=== PATIENT | male | born 1950 | race Hispanic/Latino ===

== ENCOUNTER 2020-12-01 01:54 | Inpatient (IN) | payer BC, OTHER ==
[2020-12-01] MEDS ORDERED: NA CHLORIDE 0.9% 1,000 ML ONE (07:02)
[2020-12-01] MEDS ORDERED: MORPHINE 4 MG/ML SYR ONE ×2 (07:04→12:01)
[2020-12-01] MEDS ORDERED: ONDANSETRON 4 MG/2 ML VIAL ONE (07:04)
[2020-12-01 07:34] LABS: Absolute Lymphocytes (CBC) 1.6 K/uL (0.7-4.9); Basophils % 0.5 % (0-1.3); Hematocrit 44.4 % (39.6-49.0); Lymphocytes % 26.1 % (15.3-44.8); MPV 9.1 fL (7.6-11.3); RBC Red Blood Cell Count 4.78 M/uL (4.33-5.43)
[2020-12-01 07:56] LABS: ALT/SGPT 20 U/L (12-78); AST/SGOT 7 U/L (15-37); Albumin 3.9 g/dL (3.4-5.0); Alkaline Phosphatase 62 U/L (45-117); BUN Blood Urea Nitrogen 12 mg/dL (7-18); Bicarbonate 26 mmol/L (21-32); Bilirubin Direct < 0.1 mg/dL (0-0.2); Bilirubin Total 0.4 mg/dL (0.2-1.0); Glucose Level 158 mg/dL (74-106); Potassium 3.9 mmol/L (3.5-5.1); Protein, Total 8.6 g/dL (6.4-8.2); Sodium Level 142 mmol/L (136-145)
--- NOTE | 2020-12-01 08:31 | ER ---
Nurse's Notes [facility] Name: Jack Cano Age: 70 yrs Sex: Male : 1950 Arrival Date: 12/01/2020 Time: 02:17 Bed 14 Private MD: Diagnosis: Cellulitis and acute lymphangitis of other parts of limb-right foot, cellulitis;Type 2 diabetes mellitus Presentation: 12/01 02:42 Chief complaint: Patient states: pt reports having pain to the foot at this time. sg Coronavirus screen: Client denies travel out of the [place] in the last 14 days. At this time, the client does not indicate any symptoms associated with coronavirus-19. Ebola Screen: Patient negative for fever greater than or equal to 101.5 degrees Fahrenheit, and additional compatible Ebola Virus Disease symptoms Patient denies exposure to infectious person. Patient denies travel to an Ebola-affected area in the 21 days before illness onset. No symptoms or risks identified at this time. Initial Sepsis Screen: Does the patient meet any 2 criteria? No. Patient's initial sepsis screen is negative. Does the patient have a suspected source of infection? No. Patient's initial sepsis screen is negative. Risk Assessment: Do you want to hurt yourself or someone else? Patient reports no desire to harm self or others. Onset of symptoms was December 01, 2020. Care prior to arrival: None. Transition of care: patient was not received from another setting of care. 02:42 Acuity: SARINA 4 sg 02:42 Method Of Arrival: Ambulatory sg 08:25 Acuity: SARINA 3 sg Triage Assessment: 13:30 Injury Description: pt reported dropping dry wall. jd3 Historical: - Allergies: 02:43 No Known Allergies; sg - Immunization history:: Adult Immunizations up to date. - Social history:: Smoking status: Patient denies any tobacco usage or history of. Screenin:09 Abuse screen: Denies threats or abuse. Nutritional screening: No deficits noted. ll2 Tuberculosis screening: No symptoms or risk factors identified. Fall Risk None identified. Assessment: 03:07 General: Appears in no apparent distress. Behavior is calm, cooperative, appropriate ll2 for age. Pain: Complains of pain in right foot Pain currently is 9 out of 10 on a pain scale. Neuro: Level of Consciousness is awake, alert, obeys commands, Oriented to person, place, time, situation. Cardiovascular: Patient's skin is warm and dry. Respiratory: Airway is patent Respiratory effort is even, unlabored, Respiratory pattern is regular, symmetrical. GI: No signs and/or symptoms were reported involving the gastrointestinal system. : No signs and/or symptoms were reported regarding the genitourinary system. EENT: No signs and/or symptoms were reported regarding the EENT system. Derm: Skin is intact, Skin is dry, Skin temperature is warm red swollen top of rt foot. Musculoskeletal: Circulation, motion, and sensation intact. Range of motion: limited in right ankle. 08:02 General: Appears in no apparent distress. Behavior is calm, cooperative, appropriate jd3 for age. Pain: Complains of pain in right foot. Cardiovascular: Capillary refill < 3 seconds Patient's skin is warm and dry. Respiratory: Airway is patent Respiratory effort is even, unlabored, Respiratory pattern is regular, symmetrical. Derm: Skin is intact, Skin is dry, Skin is normal, Skin temperature is warm Wound noted Other: red, swollen, warm to the touch top of right foot. pt reports recent injury. Musculoskeletal: Circulation, motion, and sensation intact. Range of motion: limited in right ankle. 10:48 Reassessment: Patient appears in no apparent distress at this time. No changes from jd3 previously documented assessment. Patient and/or family updated on plan of care and expected duration. Pain level reassessed. Patient is alert, oriented x 3, equal unlabored respirations, skin warm/dry/pink. 13:10 Reassessment: Patient appears in no apparent distress at this time. Patient and/or jd3 family updated on plan of care and expected duration. Pain level reassessed. Patient is alert, oriented x 3, equal unlabored respirations, skin warm/dry/pink. awaiting admission. 13:37 Reassessment: Patient appears in no apparent distress at this time. Patient and/or jd3 family updated on plan of care and expected duration. Pain level reassessed. Patient is alert, oriented x 3, equal unlabored respirations, skin warm/dry/pink. Vital Signs: 03:00 BP 142 / 81; Pulse 84; Resp 20; Pulse Ox 97% on R/A; ll2 04:00 BP 162 / 86; Pulse 90; Resp 22; Pulse Ox 99% on R/A; ll2 04:31 Weight 74.84 kg; Height 5 ft. 3 in. (160.02 cm); ll2 07:30 BP 129 / 57; Pulse 92; Resp 19 S; Pulse Ox 97% on R/A; jd3 10:48 BP 134 / 71; Pulse 86; Resp 17 S; Pulse Ox 98% on R/A; jd3 13:10 BP 135 / 87; Pulse 85; Resp 17 S; Pulse Ox 97% on R/A; jd3 04:31 Body Mass Index 29.23 (74.84 kg, 160.02 cm) ll2 ED Course: 02:17 Patient arrived in ED. am4 02:43 Triage completed. sg 02:43 Arm band placed on. sg 02:49 Blayne Abrams MD is Attending Physician. 7 03:07 Kimberly Sorenson, RN is Primary Nurse. ll2 03:09 Patient has correct armband on for positive identification. Bed in low position. Call ll2 light in reach. Side rails up X 1. Pulse ox on. NIBP on. 03:09 No provider procedures requiring assistance completed. ll2 07:21 Foot Right 3 View XRAY In Process Unspecified. EDMS 07:47 Attending Physician role handed off by Blayne Abrams MD mj 07:47 Cem Donis MD is Attending Physician. mj 08:29 Garland Dumont DO is Hospitalizing Provider. mj 10:53 Primary Nurse role handed off by Kimberly Sorenson, DAQUAN jd3 10:53 Vin Cheema RN is Primary Nurse. jd3 13:36 Patient admitted, IV remains in place. jd3 Administered Medications: 07:06 Drug: NS 0.9% 1000 ml Route: IV; Rate: 1000 ml; Site: right antecubital; ll2 08:00 Follow up: Response: No adverse reaction; IV Status: Completed infusion jd3 07:07 Drug: morphine 4 mg Route: IVP; Site: right antecubital; ll2 14:04 Follow up: Response: No adverse reaction; RASS: Alert and Calm (0) jd3 07:07 Drug: Zofran (Ondansetron) 4 mg Route: IVP; Site: right antecubital; ll2 08:00 Follow up: Response: No adverse reaction jd3 10:05 Drug: Zosyn 3.375 grams Route: IVPB; Infused Over: 60 mins; Site: right antecubital; jd3 11:00 Follow up: Response: No adverse reaction; IV Status: Completed infusion jd3 10:05 Drug: Bactroban Ointment 2 % 1 application Route: Topical; Site: wound; jd3 11:00 Follow up: Response: No adverse reaction jd3 10:06 Drug: Tetanus-Diphtheria Toxoid Adult 0.5 ml {Substance Abuse Rn: [employer]. Exp: jd3 03/02/2022. Lot #: [id number]. } Route: IM; Site: right deltoid; 11:00 Follow up: Response: No adverse reaction jd3 11:27 Drug: vancoMYCIN 1 grams Route: IVPB; Infused Over: 2 hrs; Site: right antecubital; jd3 13:25 Follow up: Response: No adverse reaction; IV Status: Completed infusion jd3 11:48 Drug: morphine 4 mg Route: IVP; Site: right antecubital; jd3 12:40 Follow up: Response: No adverse reaction; RASS: Alert and Calm (0) jd3 Outcome: 08:30 Decision to Hospitalize by Provider. mj 13:36 Admitted to Med/surg accompanied by tech, via wheelchair, room 225, with chart, Report jd3 called to David BUTT 13:36 Condition: stable 13:36 Instructed on the need for admit, Demonstrated understanding of instructions. 13:38 Patient left the ED. jd3 Signatures: Dispatcher [employer] EDMS Angel Ramirez RN RN sg Anderson, Corey, MD MD cha Davies, Jonathon, RN RN jd3 Linscombe, Lacie, RN RN 2 Blayne Abrams MD MD 7 Radha Ramos am4 Corrections: (The following items were deleted from the chart) 04:39 04:30 BP 142 / 81; Pulse 84bpm; Resp 20bpm; Pulse Ox 97% RA; ll2 ll2 07:06 06:40 morphine 4 mg IVP in left antecubital ll2 ll2 10:48 10:48 Reassessment: Patient appears in no apparent distress at this time. Patient jd3 and/or family updated on plan of care and expected duration. Pain level reassessed. Patient is alert, oriented x 3, equal unlabored respirations, skin warm/dry/pink. jd3 14:04 08:00 Response: No adverse reaction liv jd3
--- NOTE | 2020-12-01 08:31 | EDPHYS ---
Physician Documentation [facility] Name: Jack Cano Age: 70 yrs Sex: Male : 1950 Arrival Date: 12/01/2020 Time: 02:17 Bed 14 Private MD: AMADO Physician Cem Donis HPI: 12/01 05:34 This 70 yrs old Male presents to ER via Ambulatory with complaints of Foot mh7 Injury. 05:34 The patient presents with an injury. The complaints affect the right foot. Context: The mh7 problem was sustained at home, resulted from a heavy object falling, Dry Wall, Mechanism of Injury: Dry wall accidentally dropped onto right foot the patient can fully bear weight, the patient is able to ambulate, with mild difficulty. 05:36 Onset: The symptoms/episode began/occurred 3 day(s) ago. Modifying factors: The mh7 symptoms are alleviated by nothing, the symptoms are aggravated by weight bearing. Associated signs and symptoms: Pertinent positives: swelling, Pertinent negatives: calf tenderness, fever, nausea, numbness, rash, tingling, vomiting, warmth, weakness. Severity of symptoms: At their worst the symptoms were moderate, 2 day(s) ago, in the emergency department the symptoms are unchanged. Historical: - Allergies: 02:43 No Known Allergies; sg - Immunization history:: Adult Immunizations up to date. - Social history:: Smoking status: Patient denies any tobacco usage or history of. ROS: 05:36 Constitutional: Negative for fever, chills, and weight loss, Eyes: Negative for injury, mh7 pain, redness, and discharge, ENT: Negative for injury, pain, and discharge, Neck: Negative for injury, pain, and swelling, Cardiovascular: Negative for chest pain, palpitations, and edema, Respiratory: Negative for shortness of breath, cough, wheezing, and pleuritic chest pain, Abdomen/GI: Negative for abdominal pain, nausea, vomiting, diarrhea, and constipation, Back: Negative for injury and pain, : Negative for injury, bleeding, discharge, and swelling, Neuro: Negative for headache, weakness, numbness, tingling, and seizure, Psych: Negative for depression, anxiety, suicide ideation, homicidal ideation, and hallucinations, Allergy/Immunology: Negative for hives, rash, and allergies, Endocrine: Negative for neck swelling, polydipsia, polyuria, polyphagia, and marked weight changes, Hematologic/Lymphatic: Negative for swollen nodes, abnormal bleeding, and unusual bruising. Exam: 05:36 Constitutional: This is a well developed, well nourished patient who is awake, alert, mh7 and in no acute distress. Head/Face: Normocephalic, atraumatic. Eyes: Pupils equal round and reactive to light, extra-ocular motions intact. Lids and lashes normal. Conjunctiva and sclera are non-icteric and not injected. Cornea within normal limits. Periorbital areas with no swelling, redness, or edema. Neck: Trachea midline, no thyromegaly or masses palpated, and no cervical lymphadenopathy. Supple, full range of motion without nuchal rigidity, or vertebral point tenderness. No Meningismus. Chest/axilla: Normal chest wall appearance and motion. Nontender with no deformity. No lesions are appreciated. Cardiovascular: Regular rate and rhythm with a normal S1 and S2. No gallops, murmurs, or rubs. Normal PMI, no JVD. No pulse deficits. Respiratory: Lungs have equal breath sounds bilaterally, clear to auscultation and percussion. No rales, rhonchi or wheezes noted. No increased work of breathing, no retractions or nasal flaring. Abdomen/GI: Soft, non-tender, with normal bowel sounds. No distension or tympany. No guarding or rebound. No evidence of tenderness throughout. Back: No spinal tenderness. No costovertebral tenderness. Full range of motion. 05:36 Neuro: Awake and alert, GCS 15, oriented to person, place, time, and situation. Cranial nerves II-XII grossly intact. Motor strength 5/5 in all extremities. Sensory grossly intact. Cerebellar exam normal. Normal gait. Psych: Awake, alert, with orientation to person, place and time. Behavior, mood, and affect are within normal limits. 05:36 Musculoskeletal/extremity: Extremities: noted in the right foot: erythema, pain, swelling, tenderness, ROM: limited active range of motion due to pain, in the right foot, limited passive range of motion due to pain, in the right foot, Circulation is intact in all extremities. Pulses: are normal with no appreciated deficits, Perfusion: the patient is normally perfused throughout, Perfusion: the extremity is normally perfused throughout, Calf tenderness, is absent, Sensation intact. Compartment Syndrome exam of affected extremity: is normal. no numbness, no tingling, no sensation deficit, no palor, no weak pulses, Joints: All joints appear normal with full range of motion. 05:36 Skin: injury, contusion(s), that are deep, of the right foot. Vital Signs: 03:00 BP 142 / 81; Pulse 84; Resp 20; Pulse Ox 97% on R/A; ll2 04:00 BP 162 / 86; Pulse 90; Resp 22; Pulse Ox 99% on R/A; ll2 04:31 Weight 74.84 kg; Height 5 ft. 3 in. (160.02 cm); ll2 07:30 BP 129 / 57; Pulse 92; Resp 19 S; Pulse Ox 97% on R/A; jd3 10:48 BP 134 / 71; Pulse 86; Resp 17 S; Pulse Ox 98% on R/A; jd3 13:10 BP 135 / 87; Pulse 85; Resp 17 S; Pulse Ox 97% on R/A; jd3 04:31 Body Mass Index 29.23 (74.84 kg, 160.02 cm) ll2 MDM: 07:13 Transition of care: After a detail discussion of the patient's case, care is mh7 transferred to Cem Donis MD. 07:47 Patient medically screened. mj 08:28 Differential diagnosis: fracture, sprain, penetrating trauma, cellulitis. Data mj reviewed: vital signs, nurses notes, lab test result(s), radiologic studies. Data interpreted: svp operations: rate is 92 beats/min, rhythm is regular, Pulse oximetry: is not applicable for this patient encounter. Test interpretation: by ED physician or midlevel provider: plain radiologic studies. Counseling: I had a detailed discussion with the patient and/or guardian regarding: the historical points, exam findings, and any diagnostic results supporting the discharge/admit diagnosis, lab results, radiology results, the need for further work-up and treatment in the hospital. 12/01 04:21 Order name: Glucose, Ancillary Testing; Complete Time: 05:42 EDMS 12/01 05:42 Order name: CBC with Diff; Complete Time: 08:25 7 12/01 05:42 Order name: Basic Metabolic Panel; Complete Time: 08:25 7 12/01 05:42 Order name: LFT's; Complete Time: 08:25 7 12/01 10:56 Order name: COVID-19 : Document "Date of Symptom Onset" if Symptomatic. eb 12/01 12:09 Order name: CORONAVIRUS EDVA 12/01 03:40 Order name: Foot Right 3 View XRAY; Complete Time: 20:13 7 12/01 12:56 Order name: SARS-COV-2 RT PCR; Complete Time: 20:13 [facility] 12/01 03:41 Order name: Accucheck Blood Glucose; Complete Time: 04:00 mh7 Administered Medications: 07:06 Drug: NS 0.9% 1000 ml Route: IV; Rate: 1000 ml; Site: right antecubital; ll2 08:00 Follow up: Response: No adverse reaction; IV Status: Completed infusion jd3 07:07 Drug: morphine 4 mg Route: IVP; Site: right antecubital; ll2 14:04 Follow up: Response: No adverse reaction; RASS: Alert and Calm (0) jd3 07:07 Drug: Zofran (Ondansetron) 4 mg Route: IVP; Site: right antecubital; ll2 08:00 Follow up: Response: No adverse reaction jd3 10:05 Drug: Zosyn 3.375 grams Route: IVPB; Infused Over: 60 mins; Site: right antecubital; jd3 11:00 Follow up: Response: No adverse reaction; IV Status: Completed infusion jd3 10:05 Drug: Bactroban Ointment 2 % 1 application Route: Topical; Site: wound; jd3 11:00 Follow up: Response: No adverse reaction jd3 10:06 Drug: Tetanus-Diphtheria Toxoid Adult 0.5 ml {Sales Advisor: [employer]. Exp: jd3 03/02/2022. Lot #: [id number]. } Route: IM; Site: right deltoid; 11:00 Follow up: Response: No adverse reaction jd3 11:27 Drug: vancoMYCIN 1 grams Route: IVPB; Infused Over: 2 hrs; Site: right antecubital; jd3 13:25 Follow up: Response: No adverse reaction; IV Status: Completed infusion jd3 11:48 Drug: morphine 4 mg Route: IVP; Site: right antecubital; jd3 12:40 Follow up: Response: No adverse reaction; RASS: Alert and Calm (0) jd3 Disposition: 12/01/20 08:30 Hospitalization ordered by Garland Dumont for Inpatient Admission. Preliminary diagnosis are Cellulitis and acute lymphangitis of other parts of limb - right foot, cellulitis, Type 2 diabetes mellitus. - Bed requested for Telemetry/MedSurg (Inpatient). - Status is Inpatient Admission. jd3 - Condition is Stable. - Problem is new. - Symptoms have improved. Signatures: Dispatcher [employer] EDMS Angel Ramirez, RN RN Cem Villasenor MD MD cha Davies, Jonathon, RN RN jd3 Kandace Melendez Lacie, RN RN 2 Blayne Abrams MD MD mh7 Corrections: (The following items were deleted from the chart) 13:00 08:30 Hospitalization Ordered by Garland Dumont DO for Inpatient Admission. Preliminary eb diagnosis is Cellulitis and acute lymphangitis of other parts of limb - right foot, cellulitis; Type 2 diabetes mellitus. Bed requested for Telemetry/MedSurg (Inpatient). Status is Inpatient Admission. Condition is Stable. Problem is new. Symptoms have improved. [facility] 13:38 13:00 12/01/2020 08:30 Hospitalization Ordered by Garland Dumont DO for Inpatient jd3 Admission. Preliminary diagnosis is Cellulitis and acute lymphangitis of other parts of limb - right foot, cellulitis; Type 2 diabetes mellitus. Bed requested for Telemetry/MedSurg (Inpatient). Status is Inpatient Admission. Condition is Stable. Problem is new. Symptoms have improved. eb
--- NOTE | 2020-12-01 09:19 | P.HP ---
Certification for Inpatient Patient admitted to: Observation With expected LOS: <2 Midnights Patient will require the following post-hospital care: None Practitioner: I am a practitioner with admitting privileges, knowledge of patient current condition, hospital course, and medical plan of care. Services: Services provided to patient in accordance with Admission requirements found in Title 42 Section 412.3 of the Code of Federal Regulations Patient History Date of Service: 12/01/20 Primary Care Provider: Dr. Aguila; Neurology-Dr. Orozco Reason for admission: Right foot cellulitis History of Present Illness: 70-year-old male with history of diabetes mellitus type 2, hypertension, myasthenia gravis, and hyperlipidemia. Patient presented to the emergency room after he was working on a project. He was applying sheet rock wall and it fell on his right foot. This occurred about 3 days ago. Since that time increase erythema, swelling, and pain noted. This is not improved. Patient denies any fever, chills, chest pain or shortness of breath. Due to the increasing erythema and swelling the patient came to the ER for further evaluation. In the ER patient was evaluated. X-ray shows no evidence of gross fracture. White count 6.3, hemoglobin 14.9. Sodium 142, potassium 3.9. Being of his 12, creatinine 0.8 with a GFR greater than 90. Glucose 158. Patient was admitted for further evaluation and treatment. When I saw the patient ER, patient does not appear septic. Significant erythema, pain and swelling noted to the right foot. Home medications list reviewed: Yes - Past Medical/Surgical History Diabetic: Yes -: Diabetes mellitus type 2 -: Hypertension -: Hyperlipidemia -: Myasthenia gravis Past Surgical History: Patient denies surgical history Psychosocial/ Personal History: Patient is . Reports difficulty with his son who has mental health issues. - Family History Family History: Reviewed- Non-Contributory - Social History Smoking Status: Never smoker Alcohol use: No CD- Drugs: No Caffeine use: Yes Place of Residence: Home Review of Systems General: As per HPI Eyes: Unremarkable ENT: Unremarkable Respiratory: Unremarkable Cardiovascular: Unremarkable Gastrointestinal: Unremarkable Genitourinary: Unremarkable Musculoskeletal: As per HPI Integumentary: As per HPI Neurological: Unremarkable Lymphatics: Unremarkable Physical Examination - Physical Exam General: Alert, In no apparent distress, Oriented x3, Cooperative HEENT: Atraumatic, Normocephalic, PERRLA, Mucous membr. moist/pink Neck: Supple Respiratory: Clear to auscultation bilaterally, Normal air movement Cardiovascular: Normal pulses, Regular rate/rhythm Gastrointestinal: Normal bowel sounds, Soft and benign, Non-distended, No tenderness, No masses, No rebound, No guarding Musculoskeletal: Other (Erythema, swelling noted to the right foot. This extends from the forefoot region near the ankle region. There is an area of small ulcers but no significant exudate noted. Pain noted with palpation. Area marked. Area measures around 3 x 5 inches.) Integumentary: Other (As above) Neurological: Normal speech, Normal strength at 5/5 x4 extr, Normal tone, Normal affect - Studies Laboratory Data (last 24 hrs) 12/01/20 07:24: Sodium 142, Potassium 3.9, BUN 12, Creatinine 0.81, Glucose 158 H, Total Bilirubin 0.4, AST 7 L, ALT 20, Alkaline Phosphatase 62 12/01/20 07:24: WBC 6.30, Hgb 14.7, Hct 44.4, Plt Count 230 Assessment and Plan - Plan Initial chief complaint: Right foot pain, swelling, and erythema secondary to infection Impression: Right foot cellulitis secondary to trauma injury Diabetes mellitus type 2 Hypertension Hyperlipidemia Myasthenia gravis Plan: Right foot cellulitis secondary to trauma injury: Patient will be admitted for further evaluation and treatment. Blood cultures obtained. Area marked. No gross fracture noted on x-ray. Await final results. Will start IV with vancomycin and cefepime. Elevate leg when sitting or lying. Will have nurse clean area with normal saline and apply Bactroban ointment. Will consult surgery for further evaluation. Will keep the patient NPO after midnight for possible evaluation and debridement. Will provide medication for pain. Will provide DVT prophylaxis-Lovenox. Anticipate improvement over the next 48 hr. I will turn the service over to the hospitalist team tomorrow. I will go plan of care with him. Diabetes mellitus type 2: Will check A1c. Sliding scale in place. Continue metformin. Obtain and verify home medication. Hypertension: Obtain and verify home medication. Will start lisinopril. Hyperlipidemia: Obtain and verify home medication. Will start Lipitor. Myasthenia gravis: Will need to obtain and restart home medication. Patient sees Neurology as an outpatient. Discharge Plan: Home Plan to discharge in: 48 Hours - Advance Directives Does patient have a Living Will: No Does patient have a Durable POA for Healthcare: No - Code Status/Comfort Care Code Status Assessed: Yes (Patient is full code) Time Spent Managing Pts Care (In Minutes): 55
[2020-12-01] MEDS ORDERED: VANCOMYCIN/NS 1 gm 1 GM/250 ML BAG IVPB ONE (10:00)
[2020-12-01] MEDS ORDERED: MUPIROCIN 2% OINT 22GM TUBE TOP ONE (10:05)
[2020-12-01] MEDS ORDERED: TETANUS & DIPHTHERIA TOX,ADULT 0.5 ML VIAL ONE (10:06)
[2020-12-01] MEDS ORDERED: PIPER/TAZO/NS 3.375gm 3.375 GM/100 ML BAG ONE (10:06)
--- NOTE | 2020-12-01 12:53 | RAD REPORT ---
EXAM DESCRIPTION: RAD - Foot Right 3 View - 12/01/2020 5:15 am CLINICAL HISTORY: trauma Pain and swelling COMPARISON: FOOT W OBLIQUES dated 07/07/2008 FINDINGS: Mild diffuse osteopenia is seen. No acute fracture or dislocation seen.
[2020-12-01] MEDS ORDERED: TRAMADOL HCL 50 MG TAB PO PRN (14:10)
[2020-12-01] MEDS ORDERED: CEFEPIME 1 GM/VIAL IV SCH (14:10)
[2020-12-01] MEDS ORDERED: ONDANSETRON 4 MG/2 ML VIAL IV PRN (14:10)
[2020-12-01 14:12] VITALS: BMI 28.3
[2020-12-01] MEDS: INSULIN -REGULAR HUMAN 50 UNIT/0.5 ML ML SQ SCH ×3 (14:52→20:13)
[2020-12-01] MEDS: NA CHLORIDE 0.9% 1,000 ML IV SCH (14:57)
[2020-12-01] MEDS: METFORMIN HCL 500 MG TAB PO SCH (16:05)
[2020-12-01] MEDS: CEFEPIME/SWI 1gm 10 ML IVP SCH ×2 (16:05→20:13)
[2020-12-01] MEDS: ENOXAPARIN 40 MG/0.4 ML SQ SCH (16:06)
[2020-12-01] MEDS: VANCOMYCIN 1.25 GM in NA CHLORIDE 0.9% 250 ML IVPB SCH (16:24)
[2020-12-01 17:33] LABS: Urine Appearance CLEAR; Urine Bilirubin NEGATIVE (NEG); Urine Blood NEGATIVE (NEG); Urine Color YELLOW; Urine Glucose 2+ (NEG); Urine Protein NEGATIVE (NEG); Urine Urobilinogen 0.2 mg/dL (0.2-1.0)
[2020-12-01 17:48] LABS: Urine Microscopic Reflex NO UMIC
[2020-12-01] MEDS: HYDROCODONE/APAP 7.5/325 MG TAB PO PRN ×2 (17:49→23:32)
[2020-12-01] MEDS: ATORVASTATIN 10 MG TAB PO SCH (20:13)
[2020-12-01] MEDS: MUPIROCIN 2% OINT 22GM TUBE TOP SCH (20:15)
[2020-12-01] MEDS ORDERED: POTASSIUM CL SA 10 MEQ TAB PO ONE (21:00)
[2020-12-02 04:39] LABS: Basophils % 0.3 % (0-1.3); Hematocrit 41.4 % (39.6-49.0); MPV 8.9 fL (7.6-11.3); RBC Red Blood Cell Count 4.48 M/uL (4.33-5.43)
[2020-12-02 04:49] LABS: BUN Blood Urea Nitrogen 7 mg/dL (7-18); Bicarbonate 27 mmol/L (21-32); Glucose Level 191 mg/dL (74-106); Magnesium 1.6 mg/dL (1.8-2.4); Potassium 4.5 mmol/L (3.5-5.1); Sodium Level 141 mmol/L (136-145)
[2020-12-02] MEDS ORDERED: MAGNESIUM SULFATE 1 gm IVPB 1 GM/100 ML BAG IV ONE (05:08)
[2020-12-02] MEDS: HYDROCODONE/APAP 7.5/325 MG TAB PO PRN ×2 (05:30→22:39)
[2020-12-02] MEDS: INSULIN -REGULAR HUMAN 50 UNIT/0.5 ML ML SQ SCH ×4 (07:30→21:00)
[2020-12-02] MEDS: ENOXAPARIN 40 MG/0.4 ML SQ SCH (09:00)
[2020-12-02] MEDS: lisinopriL 10 MG TAB PO SCH (09:00)
[2020-12-02] MEDS: CEFEPIME/SWI 1gm 10 ML IVP SCH ×2 (09:00→22:30)
[2020-12-02] MEDS ORDERED: VANCOMYCIN 1 GM in NA CHLORIDE 0.9% 500 ML IVPB SCH (09:00)
[2020-12-02] MEDS: VANCOMYCIN 1.25 GM in NA CHLORIDE 0.9% 250 ML IVPB SCH (09:53)
[2020-12-02] MEDS: MUPIROCIN 2% OINT 22GM TUBE TOP SCH ×2 (09:54→21:00)
[2020-12-02] MEDS: NA CHLORIDE 0.9% 1,000 ML IV SCH (09:54)
[2020-12-02] MEDS: ASPIRIN EC 81 MG TAB PO SCH (09:57)
[2020-12-02] MEDS: METFORMIN HCL 500 MG TAB PO SCH ×2 (09:57→17:18)
[2020-12-02] MEDS: FOLIC ACID 1 MG TABLET PO SCH (09:57)
[2020-12-02] MEDS: ACETAMINOPHEN 500 MG TAB PO PRN ×2 (10:03→17:18)
--- NOTE | 2020-12-02 10:49 | CON ---
Date of Consultation: 12/02/2020 Reason For Consult: Right foot cellulitis, necrotic wound, crush injury. History Of Present Illness: This is the case of a 70-year-old patient who was working with [employer] and [employer] fell into his right foot creating a crush injury in the right foot region. Fi rst, he saw the redness and then after that saw the blackness last night, so he decided to come to [facility] ER. He denies any other trauma. He denies any dysuria, hematuria, hematochezia, melena. Denies a ny recent traveling out of the country. He denies any family member sick at home. He was ambulatory . Allergies: NONE. Past Medical History: Hypertension, hyperlipidemia, myasthenia gravis, diabetes. Past Surgical History: None. Social History: He does not smoke. He does not drink alcohol. Review of Systems: Ten points otherwise unremarkable. Physical Examination: General: The patient is awake, alert. HEENT: Pupils are equal and reactive, anicteric. Neck: Supple. Chest: Clear. Abdomen: Soft and depressible. Rectal: Deferred. Extremities: Good capillary refill. Full range of motion, but in the right foot, the patient has a dorsum of the foot with an area of about 7 x 3 cm of open ulcers and necrotic skin consistent with cr ush injury to that area. There is cellulitis associated with not just the area of the injury, also d istal and proximal on the foot. Dorsalis pedis pulses bilaterally are still palpated, although weak femoral pulses still present and popliteal. Diagnostic Studies: Foot x-ray interpreted by Dr. Dong as diffuse osteopenia. No acute fracture or dislocation. Laboratory Data: Blood work shows WBC count of 7.1, hemoglobin of 13 and chloride is 107. Creatinin e is 0.7. Assessment: This is 70-year-old patient with a right foot cellulitis traumatic wound with necrotic t issue in the right foot. The patient understood the intention of debridement with benefits, alternat peter, and risks including, but not limited to infection, bleeding, damage to adjacent structures, ane sthesia complication, nonhealing wound, [place], and even . He also understands this may not relieve symptoms. He might need more than one surgical intervention. He was booked in OR. HM/MODL Voice ID: [id number] Report ID: [id number]
[2020-12-02] MEDS ORDERED: propofoL 200 MG/20 ML VIAL IV ONE (11:38)
[2020-12-02] MEDS ORDERED: MIDAZOLAM HCL 2 MG/2 ML INJ ONE (11:38)
[2020-12-02] MEDS ORDERED: LIDOCAINE 2% MPF 5 ML VIAL ONE (11:38)
[2020-12-02] MEDS ORDERED: INFLUENZA VACCINE (for 3y+) 0.5 ML DOSE IMVAC ONE (12:00)
[2020-12-02] MEDS ORDERED: FENTANYL CITR 100 MCG/2 ML ONE (12:02)
--- NOTE | 2020-12-02 12:10 | P.BOP ---
Preoperative diagnosis: necrotic wound right foot, s/p trauma crush injury Postoperative diagnosis: same Primary procedure: Excisional debridement of necrotic wound right foot, s/p trauma 8x6cm Estimated blood loss: <10cc Specimen: necrotic tissue Findings: necrotic wound right foot Anesthesia: General Complications: None Transferred to: Recovery Room Condition: Good
[2020-12-02] MEDS ORDERED: COLLAGENASE 30 GM OINTMENT TOP ONE (12:12)
[2020-12-02] MEDS ORDERED: KETOROLAC 30 MG/ML INJ ONE (12:14)
--- NOTE | 2020-12-02 13:04 | OP ---
Date of Procedure: 12/02/2020 Surgeon: Nixon Ramos MD Preoperative Diagnosis: Necrotic right wound status post trauma, crush injury. Postoperative Diagnosis: Necrotic right wound status post trauma, crush injury. Procedure: Excisional debridement of necrotic wound right foot status post trauma, 8 x 6 cm. Specimen: Necrotic tissue, the entire dermis and epidermis. Subcutaneous tissue also is necrotic. No bone exposed. Anesthesia: General plus local. Indications: This is the case of a 70-year-old patient, who dropped a sheet rock panel on his foot w hile working at home. Developed erythema and started to develop necrotic skin over the region, came to the ER, admitted for cellulitis and also necrotic wound for debridement. The benefits, alternativ es, and risks of debridement were fully explained to the patient, which include, but not limited to i nfection, bleeding, damage to adjacent structures, anesthesia complication, nonhealing wound, [place], and even . The patient understands this may not relieve any symptoms. He might need more than one surgical intervention. He understood, signed a consent. The area of concern was marked by and willian cooper patient in the holding room. Procedure In Detail: The patient was brought to the operating room, placed in supine position. Anes thesia was done without complication. Right foot was prepped and draped in sterile fashion. A time- out was called. Local anesthetic was applied followed by debridement of the necrotic tissue and the ulceration. This goes all the way down to deep subcutaneous tissue near the tendon, although the bon e is not exposed. All the necrotic tissue was removed. The area was irrigated, hemostasis was obtai jesika, and the area was covered with Santyl and wet to dry. The patient was sent to recovery in stable condition. HM/MODL Voice ID: [id number] Report ID: [id number]
[2020-12-02] MEDS: ATORVASTATIN 10 MG TAB PO SCH (22:29)
[2020-12-02] MEDS ORDERED: CEFEPIME/SWI 1gm 10 ML ONE (22:40)
[2020-12-03] MEDS: VANCOMYCIN 1.25 GM in NA CHLORIDE 0.9% 250 ML IVPB SCH ×2 (03:32→21:23)
[2020-12-03] MEDS: HYDROCODONE/APAP 7.5/325 MG TAB PO PRN ×3 (04:00→19:47)
[2020-12-03] MEDS: NA CHLORIDE 0.9% 1,000 ML IV SCH (06:10)
[2020-12-03 06:34] LABS: Basophils % 0.3 % (0-1.3); Hematocrit 37.6 % (39.6-49.0); MPV 8.6 fL (7.6-11.3); RBC Red Blood Cell Count 4.09 M/uL (4.33-5.43)
[2020-12-03 07:09] LABS: BUN Blood Urea Nitrogen 8 mg/dL (7-18); Bicarbonate 24 mmol/L (21-32); Glucose Level 167 mg/dL (74-106); Magnesium 1.9 mg/dL (1.8-2.4); Potassium 3.7 mmol/L (3.5-5.1); Sodium Level 140 mmol/L (136-145)
[2020-12-03] MEDS: INSULIN -REGULAR HUMAN 50 UNIT/0.5 ML ML SQ SCH ×4 (07:30→21:22)
[2020-12-03] MEDS ORDERED: POTASSIUM 25 MEQ EFFERV TAB PO ONE (08:56)
[2020-12-03] MEDS: MUPIROCIN 2% OINT 22GM TUBE TOP SCH ×2 (09:00→21:00)
[2020-12-03] MEDS: CEFEPIME/SWI 1gm 10 ML IVP SCH ×2 (09:00→21:22)
[2020-12-03] MEDS: FOLIC ACID 1 MG TABLET PO SCH (09:10)
[2020-12-03] MEDS: METFORMIN HCL 500 MG TAB PO SCH ×2 (09:10→17:00)
[2020-12-03] MEDS: lisinopriL 10 MG TAB PO SCH (09:10)
[2020-12-03] MEDS: ASPIRIN EC 81 MG TAB PO SCH (09:10)
[2020-12-03] MEDS: ENOXAPARIN 40 MG/0.4 ML SQ SCH (09:11)
--- NOTE | 2020-12-03 13:27 | PN ---
Date of Progress Note: 12/03/2020 Diagnosis: Necrotic wound right foot, status post trauma. Subjective: The patient doing better. No shortness of breath. No chest pain. No fever. Intact fish rgical site. Plan: I discussed the case with the primary doctor. If he discharged home, then follow up at the [facility] next Wednesday. He can use Santyl wet-to-dry to the area daily, may clean t he area with soap and water. Avoid trauma. ABRAN/FARIHA Voice ID: [id number] Report ID: [id number]
--- NOTE | 2020-12-03 15:48 | P.CNS ---
Date of Consult: 12/03/20 Primary Care Provider: Dr. Aguila; Neurology-Dr. Orozco Chief Complaint: Right foot cellulitis History of Present Illness: The patient is a 70-year-old male with a past medical history significant for diabetes type 2, hypertension, hyperlipidemia, and myasthenia gravis who presented to the emergency department due to right foot erythema, swelling, and significant pain. Patient states that on of last week he had a piece of drywall fall and injured the dorsal aspect of his right foot. Patient states that over time the pain got increasingly worse mass which he her to the ED on Wednesday. X-ray was performed which showed no signs of any fracture. Patient's history of diabetes complicates this injury and [place] wound healing. Infectious Disease has been consulted to monitor the patient's antibiotics. Patient is currently on IV cefepime and vancomycin. Patient's high antibiotics well with no nausea, vomiting, diarrhea, or abdominal pain. Will continue monitor renal function closely. Dr. Ramos has been consulted to evaluate to the patient's wound-debridement has been performed. Dressings per orders: Santyl wet to dry. Patient has nausea vomiting, diarrhea, shortness breath, chest pain. He does have significant pain to his right foot. Ten point ROS has been conducted with pertinent positives and negatives listed above. Allergies No Known Allergies Allergy (Unverified 12/01/20 14:06) Home Medications: Atorvastatin Calcium 1 tab PO BEDTIME 12/01/20 Lisinopril [Zestril] 1 tab PO DAILY 12/01/20 Metformin HCl 1 tab PO BID 12/01/20 Mupirocin Oint [Bactroban 2% Ointment*] 1 renetta TOP BID 12/01/20 azaTHIOprine [Azathioprine] 1 tab PO BID 12/01/20 - Past Medical/Surgical History Diabetic: Yes -: Diabetes mellitus type 2 -: Hypertension -: Hyperlipidemia -: Myasthenia gravis Psychosocial/ Personal History: Patient is . Reports difficulty with his son who has mental health issues. - Family History Father Medical History: Stroke Mother History Unknown: Yes Notes: no medical condition per pt - Social History Alcohol use: No CD- Drugs: No Caffeine use: Yes Place of Residence: Home Review of Systems 10-point ROS is otherwise unremarkable Physical Examination Temp Pulse Resp BP Pulse Ox 97.9 F 125 H 18 112/70 97 12/03/20 12:00 12/03/20 12:00 12/03/20 12:00 12/03/20 12:00 12/03/20 12:00 General: Alert, In no apparent distress HEENT: Atraumatic, Normocephalic, PERRLA, Other Neck: 2+ carotid pulse no bruit, JVD not distended Respiratory: Clear to auscultation bilaterally, Normal air movement Cardiovascular: No edema, Normal pulses, Regular rate/rhythm Capillary refill: <2 Seconds Gastrointestinal: Normal bowel sounds, Soft and benign Musculoskeletal: No clubbing, No swelling Integumentary: Other (Wound 2 the dorsal aspect of right foot: Wound started as a trauma injury and has progressed to do DAISY patient's diabetes. Status post debridement of necrotic tissue. Periwound tissue is erythematous with significant bruising.) Laboratory Last Values WBC 7.10 K/uL (4.3-10.9) 12/02/20 04:08 RBC 4.48 M/uL (4.33-5.43) 12/02/20 04:08 Hgb 13.7 g/dL (13.6-17.9) 12/02/20 04:08 Hct 41.4 % (39.6-49.0) 12/02/20 04:08 MCV 92.4 fL (80-100) 12/02/20 04:08 MCH 30.7 pg (27.0-35.0) 12/02/20 04:08 MCHC 33.2 g/dL (32.0-36.0) 12/02/20 04:08 RDW 13.1 % (12.1-15.2) 12/02/20 04:08 Plt Count 205 K/uL (152-406) 12/02/20 04:08 MPV 8.9 fL (7.6-11.3) 12/02/20 04:08 Neutrophils % 75.7 % (41.7-73.7) H 12/02/20 04:08 Lymphocytes % 14.0 % (15.3-44.8) L 12/02/20 04:08 Monocytes % 9.4 % (3.3-12.3) 12/02/20 04:08 Eosinophils % 0.6 % (0-4.4) 12/02/20 04:08 Basophils % 0.3 % (0-1.3) 12/02/20 04:08 Absolute Neutrophils 5.4 K/uL (1.8-8.0) 12/02/20 04:08 Absolute Lymphocytes 1.0 K/uL (0.7-4.9) 12/02/20 04:08 Absolute Monocytes 0.7 K/uL (0.1-1.3) 12/02/20 04:08 Absolute Eosinophils 0.0 K/uL (0-0.5) 12/02/20 04:08 Absolute Basophils 0.0 K/uL (0-0.5) 12/02/20 04:08 Sodium 141 mmol/L (136-145) 12/02/20 04:08 Potassium 4.5 mmol/L (3.5-5.1) 12/02/20 04:08 Chloride 107 mmol/L (98-107) 12/02/20 04:08 Carbon Dioxide 27 mmol/L (21-32) 12/02/20 04:08 BUN 7 mg/dL (7-18) 12/02/20 04:08 Creatinine 0.73 mg/dL (0.55-1.3) 12/02/20 04:08 Estimated GFR > 90 mL/min (=/>90) 12/02/20 04:08 Glucose 191 mg/dL (74-106) H 12/02/20 04:08 POC Glucose 167 mg/dL (65-120) H 12/02/20 15:45 Hemoglobin A1c 7.2 % (4.2-6.3) H 12/02/20 04:08 Calcium 8.3 mg/dL (8.5-10.1) L 12/02/20 04:08 Magnesium 1.6 mg/dL (1.8-2.4) L 12/02/20 04:08 Total Bilirubin 0.4 mg/dL (0.2-1.0) 12/01/20 07:24 Direct Bilirubin < 0.1 mg/dL (0-0.2) 12/01/20 07:24 AST 7 U/L (15-37) L 12/01/20 07:24 ALT 20 U/L (12-78) 12/01/20 07:24 Alkaline Phosphatase 62 U/L (45-117) 12/01/20 07:24 Serum Total Protein 8.6 g/dL (6.4-8.2) H 12/01/20 07:24 Albumin 3.9 g/dL (3.4-5.0) 12/01/20 07:24 Globulin 4.7 g/dL (2.3-3.5) H 12/01/20 07:24 Albumin/Globulin Ratio 0.8 (1.1-1.8) L 12/01/20 07:24 Urine Color Yellow 12/01/20 16:25 Urine Appearance Clear 12/01/20 16:25 Urine pH 6.0 (5.0-7.0) 12/01/20 16:25 Ur Specific [place] 1.020 (1.005-1.030) 12/01/20 16:25 Glucose (UA)(Auto) 2+ (NEG) H 12/01/20 16:25 Urine Ketones 1+ (NEG) H 12/01/20 16:25 Urine Blood Negative (NEG) 12/01/20 16:25 Urine Nitrite Negative (NEG) 12/01/20 16:25 Urine Bilirubin Negative (NEG) 12/01/20 16:25 Urine Urobilinogen 0.2 mg/dL (0.2-1.0) 12/01/20 16:25 Ur Leukocyte Esterase Negative (NEG) 12/01/20 16:25 Urine Total Protein Negative (NEG) 12/01/20 16:25 SARS-CoV-2 RNA (RT-PCR) Negative (NEGATIVE) 12/01/20 11:24 Conclusions/Impression: Assessmnet: 1. Right foot wound with cellulitis 2. Diabetes type 2 3. Anemia Plan: 1. Continue vancomycin and cefepime. The patient will need course antibiotics for 2 weeks to cover cellulitis, can switch to p.o. options for discharge .Will continue monitor renal function closely. -medical management per primary team -continue to monitor CBC and BMP -continue to monitor for signs of infection Plan of care discussed with Dr. Meyer. Thank you for consultation
[2020-12-03] MEDS: ATORVASTATIN 10 MG TAB PO SCH (21:22)
[2020-12-04] MEDS: NA CHLORIDE 0.9% 1,000 ML IV SCH (02:10)
[2020-12-04 03:43] LABS: BUN Blood Urea Nitrogen 8 mg/dL (7-18); Bicarbonate 27 mmol/L (21-32); Glucose Level 156 mg/dL (74-106); Potassium 3.9 mmol/L (3.5-5.1); Sodium Level 142 mmol/L (136-145)
[2020-12-04] MEDS: FOLIC ACID 1 MG TABLET PO SCH (07:24)
[2020-12-04] MEDS: lisinopriL 10 MG TAB PO SCH (07:24)
[2020-12-04] MEDS: METFORMIN HCL 500 MG TAB PO SCH (07:24)
[2020-12-04] MEDS: HYDROCODONE/APAP 7.5/325 MG TAB PO PRN (07:24)
[2020-12-04] MEDS: ASPIRIN EC 81 MG TAB PO SCH (07:24)
[2020-12-04] MEDS: ENOXAPARIN 40 MG/0.4 ML SQ SCH (07:25)
[2020-12-04] MEDS: CEFEPIME/SWI 1gm 10 ML IVP SCH (07:25)
[2020-12-04] MEDS: INSULIN -REGULAR HUMAN 50 UNIT/0.5 ML ML SQ SCH (07:30)
[2020-12-04] MEDS: MUPIROCIN 2% OINT 22GM TUBE TOP SCH (08:22)
[2020-12-04 08:54] VITALS: TEMP 98.8
[2020-12-04 10:08] VITALS: O2SAT 96
--- NOTE | 2020-12-04 10:16 | P.PN ---
Subjective Date of Service: 12/02/20 Patient was cellulitis of the foot. Improving. Debridement today per surgery. Possible discharge home in the next 24-48hrs Review of Systems 10-point ROS is otherwise unremarkable Physical Examination - Vital Signs Temperature: 98.8 F Blood Pressure: 144/77 Pulse: 93 Respirations: 17 Pulse Ox (%): 95 - Physical Exam General: Alert, In no apparent distress, Oriented x3 HEENT: Atraumatic, PERRLA, EOMI Neck: Supple, JVD not distended Respiratory: Clear to auscultation bilaterally, Normal air movement Cardiovascular: Regular rate/rhythm, Normal S1 S2 Gastrointestinal: Normal bowel sounds, No tenderness Musculoskeletal: Erythema, Tenderness, Warmth Neurological: Sensation intact, Cranial nerves 3-12 intact Lymphatics: No axilla or inguinal lymphadenopathy - Studies Microbiology Data (last 24 hrs): 12/02/20 11:49 Wound - Right Foot Gram Stain - Final 12/02/20 11:49 Wound - Right Foot Gram Stain - Final Medications List Reviewed: Yes Assessment & Plan - Problems (Diagnosis) (1) Cellulitis of right foot Current Visit: Yes Status: Acute (2) Trauma Current Visit: Yes Status: Acute (3) Diabetes mellitus Current Visit: Yes Status: Acute - Plan 1. Continue with IV antibiotic 2. Continue with local wound care 3. Wound care consultation/surgical consultation 4. Gentle IV hydration 5. Monitor CBC 6. Strict blood sugar monitoring 7. Pain control 8. GI and DVT prophylaxis Discharge Plan: Home Plan to discharge in: 24 Hours - Advance Directives Does patient have a Living Will: No Does patient have a Durable POA for Healthcare: No - Code Status/Comfort Care Code Status Assessed: Yes Code Status: Full Code Critical Care: No Time Spent Managing PTS Care (In Minutes): 35
--- NOTE | 2020-12-04 10:17 | P.PN ---
Date of Service: 12/03/20 Subjective Patient doing better with no new complaints. Anticipate discharge in the morning. Review of Systems 10-point ROS is otherwise unremarkable Physical Examination - Vital Signs Reviewed - Physical Exam General: Alert, In no apparent distress, Oriented x3 Respiratory: Clear to auscultation bilaterally, Normal air movement Cardiovascular: Regular rate/rhythm, Normal S1 S2 Gastrointestinal: Normal bowel sounds, No tenderness Musculoskeletal: Erythema, Tenderness, Warmth Neurological: Sensation intact, Cranial nerves 3-12 intact Assessment & Plan - Problems (Diagnosis) (1) Cellulitis of right foot Current Visit: Yes Status: Acute (2) Trauma Current Visit: Yes Status: Acute (3) Diabetes mellitus Current Visit: Yes Status: Acute - Plan Plan of care as mentioned below 1. Continue with IV antibiotic 2. Continue with local wound care 3. Surgical consultation appreciated 4. Gentle IV hydration 5. Monitor CBC 6. Strict blood sugar monitoring 7. Pain control 8. GI and DVT prophylaxis
--- NOTE | 2020-12-04 11:08 | P.PN ---
Subjective Date of Service: 12/04/20 Primary Care Provider: Dr. Aguila; Neurology-Dr. Orozco Chief Complaint: Right foot cellulitis Patient christos nd examined at bedside. No acut complaints at this time, pain in right foot is improving. Vitals today-patient is tacy and hypertensive, afebrile. Review of Systems 10-point ROS is otherwise unremarkable Physical Examination - Vital Signs Temperature: 98.8 F Blood Pressure: 144/77 Pulse: 93 Respirations: 17 Pulse Ox (%): 95 - Physical Exam Other Physical/Emotional Findings: General: Alert, In no apparent distress. HEENT: Atraumatic, Normocephalic, PERRLA, Other. Neck: 2+ carotid pulse no bruit, JVD not distended. Respiratory: Clear to auscultation bilaterally, Normal air movement. Cardiovascular: No edema, Normal pulses, Regular rate/rhythm. Capillary refill: <2 Seconds. Gastrointestinal: Normal bowel soun ds, Soft and benign. Musculoskeletal: No clubbing, No swelling. Integumentary: Other (Wound 2 the dorsal aspect of right foot: Wound started as a trauma injury and has progressed to do the patient's diabetes. Status post debridement of necrotic tissue. Periwound tissue is erythematous with significant bruising.) - Studies Laboratory Last Values WBC 7.10 K/uL (4.3-10.9) 12/02/20 04:08 RBC 4.48 M/uL (4.33-5.43) 12/02/20 04:08 Hgb 13.7 g/dL (13.6-17.9) 12/02/20 04:08 Hct 41.4 % (39.6-49.0) 12/02/20 04:08 MCV 92.4 fL (80-100) 12/02/20 04:08 MCH 30.7 pg (27.0-35.0) 12/02/20 04:08 MCHC 33.2 g/dL (32.0-36.0) 12/02/20 04:08 RDW 13.1 % (12.1-15.2) 12/02/20 04:08 Plt Count 205 K/uL (152-406) 12/02/20 04:08 MPV 8.9 fL (7.6-11.3) 12/02/20 04:08 Neutrophils % 75.7 % (41.7-73.7) H 12/02/20 04:08 Lymphocytes % 14.0 % (15.3-44.8) L 12/02/20 04:08 Monocytes % 9.4 % (3.3-12.3) 12/02/20 04:08 Eosinophils % 0.6 % (0-4.4) 12/02/20 04:08 Basophils % 0.3 % (0-1.3) 12/02/20 04:08 Absolute Neutrophils 5.4 K/uL (1.8-8.0) 12/02/20 04:08 Absolute Lymphocytes 1.0 K/uL (0.7-4.9) 12/02/20 04:08 Absolute Monocytes 0.7 K/uL (0.1-1.3) 12/02/20 04:08 Absolute Eosinophils 0.0 K/uL (0-0.5) 12/02/20 04:08 Absolute Basophils 0.0 K/uL (0-0.5) 12/02/20 04:08 Sodium 141 mmol/L (136-145) 12/02/20 04:08 Potassium 4.5 mmol/L (3.5-5.1) 12/02/20 04:08 Chloride 107 mmol/L (98-107) 12/02/20 04:08 Carbon Dioxide 27 mmol/L (21-32) 12/02/20 04:08 BUN 7 mg/dL (7-18) 12/02/20 04:08 Creatinine 0.73 mg/dL (0.55-1.3) 12/02/20 04:08 Estimated GFR > 90 mL/min (=/>90) 12/02/20 04:08 Glucose 191 mg/dL (74-106) H 12/02/20 04:08 POC Glucose 167 mg/dL (65-120) H 12/02/20 15:45 Hemoglobin A1c 7.2 % (4.2-6.3) H 12/02/20 04:08 Calcium 8.3 mg/dL (8.5-10.1) L 12/02/20 04:08 Magnesium 1.6 mg/dL (1.8-2.4) L 12/02/20 04:08 Total Bilirubin 0.4 mg/dL (0.2-1.0) 12/01/20 07:24 Direct Bilirubin < 0.1 mg/dL (0-0.2) 12/01/20 07:24 AST 7 U/L (15-37) L 12/01/20 07:24 ALT 20 U/L (12-78) 12/01/20 07:24 Alkaline Phosphatase 62 U/L (45-117) 12/01/20 07:24 Serum Total Protein 8.6 g/dL (6.4-8.2) H 12/01/20 07:24 Albumin 3.9 g/dL (3.4-5.0) 12/01/20 07:24 Globulin 4.7 g/dL (2.3-3.5) H 12/01/20 07:24 Albumin/Globulin Ratio 0.8 (1.1-1.8) L 12/01/20 07:24 Urine Color Yellow 12/01/20 16:25 Urine Appearance Clear 12/01/20 16:25 Urine pH 6.0 (5.0-7.0) 12/01/20 16:25 Ur Specific [place] 1.020 (1.005-1.030) 12/01/20 16:25 Glucose (UA)(Auto) 2+ (NEG) H 12/01/20 16:25 Urine Ketones 1+ (NEG) H 12/01/20 16:25 Urine Blood Negative (NEG) 12/01/20 16:25 Urine Nitrite Negative (NEG) 12/01/20 16:25 Urine Bilirubin Negative (NEG) 12/01/20 16:25 Urine Urobilinogen 0.2 mg/dL (0.2-1.0) 12/01/20 16:25 Ur Leukocyte Esterase Negative (NEG) 12/01/20 16:25 Urine Total Protein Negative (NEG) 12/01/20 16:25 SARS-CoV-2 RNA (RT-PCR) Negative (NEGATIVE) 12/01/20 11:24 Microbiology Data (last 24 hrs): 12/02/20 11:49 Wound - Right Foot Gram Stain - Final 12/02/20 11:49 Wound - Right Foot Gram Stain - Final Medications List Reviewed: Yes Assessment And Plan - Plan Assessment: 1. Right foot wound with cellulites 2. Diabetes type 2 3. Anemia Plan: 1. Continue vancomycin and cefepime. The patient will need course antibiotics for 2 weeks to cover cellulites, can switch to p.o. options for discharge- doxycycline.Will continue monitor renal function closely. -medical management per primary team -continue to monitor CBC and BMP -continue to monitor for signs of infection Plan of care discussed with Dr. Meyer. Thank you for consultation
[2020-12-04 12:42] VITALS: BP 147/75
--- NOTE | 2020-12-24 01:09 | P.DS ---
Discharge Date: 12/04/20 Primary Care Provider: Dr. Aguila; Neurology-Dr. Orozco Disposition: ROUTINE DISCHARGE Discharge Condition: GOOD Reason for Admission: Right foot cellulitis - Problems (1) Cellulitis of right foot Status: Resolved (2) Trauma Status: Acute (3) Diabetes mellitus Status: Chronic Brief History of Present Illness: Patient is a 70-year-old male with history of diabetes mellitus type 2, hypertension, myasthenia gravis, and hyperlipidemia. Patient presented to the emergency room after he was working on a project. He was applying sheet [place] wall and it fell on his right foot. This occurred about 3 days ago. Since that time increase erythema, swelling, and pain noted. This is not improved. Patient denies any fever, chills, chest pain or shortness of breath. Due to the increasing erythema and swelling the patient came to the ER for further evaluation. In the ER patient was evaluated. X-ray shows no evidence of gross fracture. White count 6.3, hemoglobin 14.9. Sodium 142, potassium 3.9. Being of his 12, creatinine 0.8 with a GFR greater than 90. Glucose 158. Patient was admitted for further evaluation and treatment. When I saw the patient ER, patient does not appear septic. Significant erythema, pain and swelling noted to the right foot. Hospital Course: Patient was seen by surgery and infectious disease. Patient had incision and debridement. Patient will be on oral antibiotics for 2 weeks at discharge. At this time patient is stable for discharge and continued outpatient follow up. Return to the emergency room or as needed. Patient is to maintain strict blood sugll. Vital Signs/Physical Exam: Temp Pulse Resp BP Pulse Ox 98.8 F 94 H 16 147/75 H 98 12/04/20 12:00 12/04/20 12:00 12/04/20 12:00 12/04/20 12:00 12/04/20 12:00 General: Alert, In no apparent distress, Oriented x3 Other Physical/Emotional Findings: General: Alert, In no apparent distress. HEENT: Atraumatic, Normocephalic, PERRLA, Other. Neck: 2+ carotid pulse no bruit, JVD not distended. Respiratory: Clear to auscultation bilaterally, Normal air movement. Cardiovascular: No edema, Normal pulses, Regular rate/rhythm. Capillary refill: <2 Seconds. Gastrointestinal: Normal bowel sounds, Soft and benign. Musculoskeletal: No clubbing, No swelling. Integumentary: Other (Wound 2 the dorsal aspect of right foot: Wound started as a trauma injury and has progressed to do the patient's diabetes. Status post debridement of necrotic tissue. Periwound tissue is erythematous with significant bruising.) Laboratory Data at Discharge: WBC 6.90 K/uL (4.3-10.9) 12/03/20 06:00 Hgb 12.5 g/dL (13.6-17.9) L 12/03/20 06:00 Hct 37.6 % (39.6-49.0) L 12/03/20 06:00 Plt Count 198 K/uL (152-406) 12/03/20 06:00 Sodium 142 mmol/L (136-145) 12/04/20 03:10 Potassium 3.9 mmol/L (3.5-5.1) 12/04/20 03:10 BUN 8 mg/dL (7-18) 12/04/20 03:10 Creatinine 0.59 mg/dL (0.55-1.3) 12/04/20 03:10 Glucose 156 mg/dL (74-106) H 12/04/20 03:10 Magnesium 1.9 mg/dL (1.8-2.4) 12/03/20 06:00 Total Bilirubin 0.4 mg/dL (0.2-1.0) 12/01/20 07:24 AST 7 U/L (15-37) L 12/01/20 07:24 ALT 20 U/L (12-78) 12/01/20 07:24 Alkaline Phosphatase 62 U/L (45-117) 12/01/20 07:24 Home Medications: Atorvastatin Calcium 1 tab PO BEDTIME 12/01/20 Lisinopril [Zestril] 1 tab PO DAILY 12/01/20 Metformin HCl 1 tab PO BID 12/01/20 azaTHIOprine [Azathioprine] 1 tab PO BID 12/01/20 Smz./Tmp. [Bactrim Ds 800 MG/160 MG] 1 tab PO BID #20 tab 12/04/20 Pyridostigmine [place] [Mestinon] 60 mg PO TID 12/12/20 New Medications: Smz./Tmp. [Bactrim Ds 800 MG/160 MG] 1 tab PO BID #20 tab Physician Discharge Instructions: -OK TO DC IV AND DC HOME -FOLLOW-UP WITH PCP IN 1-2 WEEKS -FOLLOW-UP WITH Surgery IN 1-2 WEEKS -PLEASE MAKE SURE ALL DIAGNOSTIC STUDIES ARE AVAILABLE AND HAVE BEEN REVIEWED WITH PATIENT PRIOR TO DISCHARGE -RETURN TO THE ER IF Symptoms worsen -CALL DR. MCADAMS AT [phone] IF ANY QUESTIONS REGARDING HOSPITAL STAY -PLEASE CALL THE FLOOR AT [phone] IF ANY MEDICATION OR NURSING QUESTIONS Diet: ADA Activity: Fall precautions Followup: Nixon Ramos MD [ACTIVE - CAN ADMIT] - NONE,NONE [Primary Care Provider] - Time spent managing pt's care (in minutes): 35
== END 2020-12-04 13:09 | disposition home or self-care (01) | DRG 264 ==
LOC: ER 01:54 → ERHOLD 09:05 → 2ND 13:27 → OBSVTOIN 12-02 19:08
PROVIDERS: ADMIT Family Medicine; ATTEND Hospitalist
PROC: 0JBQ0ZZ Excision of Right Foot Subcutaneous Tissue and Fascia, Open Approach (ICD-10-PCS; principal; 2020-12-02 12:30)
DX: E11.52 Type 2 diabetes mellitus with diabetic peripheral angiopathy with gangrene (principal); I96 Gangrene, not elsewhere classified; L03.115 Cellulitis of right lower limb; E11.621 Type 2 diabetes mellitus with foot ulcer; L97.519 Non-pressure chronic ulcer of other part of right foot with unspecified severity; I10 Essential (primary) hypertension; D64.9 Anemia, unspecified; E78.5 Hyperlipidemia, unspecified; G70.00 Myasthenia gravis without (acute) exacerbation; Z79.84 Long term (current) use of oral hypoglycemic drugs; Z79.899 Other long term (current) drug therapy; Z23 Encounter for immunization; Z20.822 Contact with and (suspected) exposure to COVID-19
CPT/HCPCS: 36415; 80048; 80076; 81003; 82947; 83036; 83735; 85025; 87040; 87070; 87075; 87205; 88304; 90471; 90714; 96361; 96365; 96366; 96367; 96375; 97116; 97161; 97530; 99285; G0378; J0692; J1650; J2250; J2405; J2543; J2704; J3010; J3370; J3475; J3590; J7030; J7050; Q2035; U0003

== ENCOUNTER 2023-05-13 07:00 | Day surgery (SDC) | payer OTHER ==
[2023-05-11 13:32] LABS: Absolute Lymphocytes (CBC) 1.5 K/uL (0.7-4.9); Hematocrit 46.1 % (39.6-49.0); Lymphocytes % 24.3 % (15.3-44.8); MCV 91.3 fL (80-100); MPV 8.5 fL (7.6-11.3); Platelets 217 thou/uL (152-406); RBC Red Blood Cell Count 5.05 M/uL (4.33-5.43)
[2023-05-11 13:34] LABS: Protime INR 1.01
--- NOTE | 2023-05-11 13:38 | RAD REPORT ---
EXAM DESCRIPTION: RAD - Chest Pa And Lat (2 Views) - 05/11/2023 1:17 pm CLINICAL HISTORY: Pre op pending abdominal angiogram. Hypertension COMPARISON: CHEST PA AND LAT 2 VIEW dated 07/08/2008 TECHNIQUE: PA and lateral views of the chest were obtained. FINDINGS: The lungs are clear. Heart size is normal and central vasculature is within normal limits. No pleural effusion or pneumothorax seen. No acute bony finding noted. IMPRESSION: No acute cardiopulmonary process.
[2023-05-11 13:45] LABS: Potassium 4.2 mEq/L (3.5-5.1)
--- NOTE | 2023-05-12 18:29 | EKG ---
Test Date: 2023-05-11 Test Time: 13:03:02 [employer] Sales Representative: ROMANA MEASUREMENT RESULTS: Intervals: Rate: 100 PA: 174 QRSD: 106 QT: 356 QTc: 459 [place]: P: 40 PA: 174 QRS: 233 T: 43 INTERPRETIVE STATEMENTS: Normal sinus rhythm Right superior axis deviation Possible Anterior infarct, age undetermined Abnormal ECG Compared to ECG 07/08/2008 13:26:17 Right superior axis now present Intraventricular conduction delay no longer present Left-axis deviation no longer present Myocardial infarct finding still present Electronically Signed On 05-12-23 18:26:16 CDT by Miguel Angel Alford
[2023-05-13] MEDS ORDERED: NA CHLORIDE 0.9% 500 ML ONE (07:50)
[2023-05-13 08:29] VITALS: TEMP 97.6
[2023-05-13] MEDS ORDERED: FENTANYL CITR 100 MCG/2 ML ONE ×2 (08:32→09:02)
[2023-05-13] MEDS ORDERED: VERAPAMIL HCL 10 MG/4 ML VIAL IV ONE ×2 (08:32→09:02)
[2023-05-13] MEDS ORDERED: MIDAZOLAM HCL 2 MG/2 ML INJ ONE ×2 (08:32→09:02)
[2023-05-13] MEDS ORDERED: HEPA 1000U/500MLS 2,000 UNIT/1,000 ML BAG IV ONE (08:32)
[2023-05-13] MEDS ORDERED: HEPARIN 5000 UNIT/ML 1 ML VIAL ONE ×2 (08:32→09:02)
[2023-05-13] MEDS ORDERED: HEPARIN 10,000 UNIT/10 ML VIAL IV ONE (08:33)
[2023-05-13] MEDS ORDERED: ATROPINE SULF 1 MG/10 ML SYR IV ONE ×2 (08:33→09:02)
[2023-05-13] MEDS ORDERED: TICAGRELOR 90 MG TABLET PO ONE (08:33)
[2023-05-13] MEDS ORDERED: CLOPIDOGREL 75 MG TABLET ONE (08:33)
[2023-05-13] MEDS ORDERED: ASPIRIN 325 MG TAB ONE (08:33)
[2023-05-13] MEDS ORDERED: NITROGLYCERIN 100 MCG/ML SYR (for cath lab use only) IV ONE (09:02)
[2023-05-13] MEDS ORDERED: LIDOCAINE 1% 20 ML MDV ONE (09:08)
--- NOTE | 2023-05-13 11:06 | OP ---
Date of Procedure: 05/13/2023 Surgeon: FLAKITO SPAULDING Procedure Performed: Peripheral angiogram. Indication: Peripheral vascular disease. Access: Right radial artery 6-Zimbabwean closed with TR band. Complications: None. Bleeding: Less than 20 mL. Anesthesia: Total sedation time was 25 minutes. Description Of Procedure: After risks, benefits, alternatives were explained, the patient agreed to procedure and signed informed consent. The patient was brought into the cardiac catheterization lab[facility], prepped and draped in the usual sterile fashion. Then, I accessed right radial artery using pediatric micropuncture kit, placed a 6-Zimbabwean Slender sheath and took 4-Zimbabwean long pigtail catheter , placed in distal aorta over a long J-wire and then performed distal aortogram and runoff, and then catheter was removed, sheath was removed, placed TR band with good hemostasis. Findings: 1.The distal aorta is widely patent. 2.Right lower extremity; the right common iliac, right external iliac, and right common femoral, and right profunda are all widely patent. No significant disease. The right SFA has diffuse 10% to 20% throughout and distally there was a focal 40% stenosis. The popliteal artery is normal. Then, the anterior tibial on the right side is 100% occluded and then the tibial trunk is occluded afterwards a nd there is reconstitution of blood, probably filling the posterior tibial through collaterals on the right leg. 3.Left lower extremity; the left common iliac, left external iliac, left common femoral, left SFA, a nd profunda were all widely patent without significant disease and then the left anterior tibial is 1 00% occluded proximally and the peroneal artery is patent, but the left posterior tibial also is occl uded. Conclusion: Severe bilateral below the knee peripheral vascular disease, heavily calcified vessels, and 100% occlusions. Plan: Medical management. /MODL Voice ID: [id number] Report ID: [id number]
[2023-05-13 11:38] VITALS: BP 126/74; O2SAT 98
== END 2023-05-13 11:15 | disposition home or self-care (01) ==
LOC: CCL 07:00
PROVIDERS: ATTEND Internal Medicine
DX: I70.213 Atherosclerosis of native arteries of extremities with intermittent claudication, bilateral legs (principal); I70.92 Chronic total occlusion of artery of the extremities; I10 Essential (primary) hypertension; E78.5 Hyperlipidemia, unspecified; E11.9 Type 2 diabetes mellitus without complications; Z79.84 Long term (current) use of oral hypoglycemic drugs; Z79.899 Other long term (current) drug therapy
CPT/HCPCS: 36200; 36415; 71046; 75630; 76937; 80048; 82947; 85025; 85610; 85730; 93005; C1893; J0461; J1644; J2001; J2250; J3010; J7040

== ENCOUNTER 2024-05-04 10:20 | Day surgery (SDC) | payer OTHER ==
[2024-05-02 14:49] LABS: Absolute Eosinophils 0.1 K/uL (0-0.5); Absolute Lymphocytes (CBC) 1.6 K/uL (0.7-4.9); Absolute Monocytes 0.4 K/uL (0.1-1.3); Absolute Neutrophil 3.4 K/uL (1.8-8.0); Basophils % 0.4 % (0-1.3); Eosinophils % 2.4 % (0-4.4); Hematocrit 41.6 % (39.6-49.0); Hemoglobin 13.8 g/dL (13.6-17.9); Lymphocytes % 28.9 % (15.3-44.8); MCH 30.9 pg (27.0-35.0); MCHC 33.1 g/dL (32.0-36.0); MCV 93.5 fL (80-100); MPV 8.3 fL (7.6-11.3); Monocytes % 7.5 % (3.3-12.3); Neutrophils % 60.8 % (41.7-73.7); Platelets 185 thou/uL (152-406); RBC Red Blood Cell Count 4.45 M/uL (4.33-5.43)
[2024-05-02 15:15] LABS: PT Prothrombin Time 11.5 SECONDS (9.4-12.5); PTT, Activated Partial Thromb 33.3 SECONDS (24.3-36.9); Protime INR 1.03
[2024-05-02 15:32] LABS: Anion Gap 7.1 mEq/L (5.0-15.0); Potassium 4.1 mEq/L (3.5-5.1)
--- NOTE | 2024-05-02 15:39 | RAD REPORT ---
EXAM DESCRIPTION: RAD - Chest Pa And Lat (2 Views) - 05/02/2024 2:59 pm CLINICAL HISTORY: Pre op pending carotid angiogram COMPARISON: Chest Pa And Lat (2 Views) dated 05/11/2023; CHEST PA AND LAT 2 VIEW dated 07/08/2008 FINDINGS: Lines: None. Lungs: No evidence of edema or pneumonia. Pleural: No significant pleural effusions or pneumothorax. Cardiac: The heart size is within normal limits. Mediastinum: Within normal limits. Bones: No acute fractures. Other: None IMPRESSION: No acute cardiopulmonary disease.
[2024-05-04] MEDS ORDERED: NA CHLORIDE 0.9% 500 ML ONE (10:23)
[2024-05-04] MEDS ORDERED: HEPA 1000U/500MLS 2,000 UNIT/1,000 ML BAG IV ONE (12:53)
[2024-05-04] MEDS ORDERED: LIDOCAINE 1% 20 ML MDV ONE (12:53)
[2024-05-04] MEDS ORDERED: MIDAZOLAM HCL 2 MG/2 ML INJ ONE (12:53)
[2024-05-04] MEDS ORDERED: FENTANYL CITR 100 MCG/2 ML ONE (12:54)
[2024-05-04] MEDS ORDERED: ATROPINE SULF 1 MG/10 ML SYR IV ONE (12:54)
[2024-05-04] MEDS ORDERED: HEPARIN 10,000 UNIT/10 ML VIAL IV ONE (12:54)
[2024-05-04] MEDS ORDERED: HEPARIN 5000 UNIT/ML 1 ML VIAL ONE (12:54)
--- NOTE | 2024-05-04 13:12 | EKG ---
Test Date: 2024-05-02 Test Time: 14:46:54 Clinical Unit Coordinator: MARVIN MEASUREMENT RESULTS: Intervals: Rate: 70 MI: 186 QRSD: 118 QT: 406 QTc: 438 [place]: P: 62 MI: 186 QRS: 150 T: 32 INTERPRETIVE STATEMENTS: Normal sinus rhythm Right axis deviation Nonspecific intraventricular conduction delay Abnormal ECG Compared to ECG 05/11/2023 13:03:02 Right-axis deviation now present Intraventricular conduction delay now present Right superior axis no longer present Myocardial infarct finding no longer present Electronically Signed On 05-04-24 13:06:26 CDT by Miguel Angel Alford
[2024-05-04 16:52] VITALS: BP 128/91; O2SAT 100
--- NOTE | 2024-05-05 00:35 | OP ---
Date of Procedure: 05/04/2024 Surgeon: FLAKITO SPAULDING Procedure Performed: Selective bilateral carotid angiogram. Indication: Carotid stenosis per Doppler. Access: Right common femoral artery, 4-Bahamian, closed with manual pressure. Complications: None. Bleeding: Less than 50 mL. Anesthesia: Total sedation time was 45 minutes, used fentanyl, Versed. Description Of Procedure: After risks, benefits, alternatives were explained, patient agreed to the procedure and signed informed consent. The patient was brought into cardiac catheterization laborato , prepped and draped in sterile fashion. Then, I accessed right common femoral artery using microp uncture kit, ultrasound guidance, and fluoroscopy, placed a 4-Bahamian pinnacle sheath. Then I took a 4-Bahamian 3DRC catheter, engaged the left common carotid artery, took standard views and then the righ t common carotid artery and took standard views and removed the catheter and sheath. Manual pressure was used for closure with good hemostasis. Findings: 1.Right common carotid is normal. Right internal carotid has proximal 40% stenosis and the external carotid on the right is normal. 2.Left common carotid is normal. Left external carotid is normal. Left internal carotid has mild 1 0% to 20% proximal stenosis. Conclusion: Mild to moderate carotid artery stenosis, especially on the right. Recommendation: Medical management and periodic Doppler. SR/MODL Voice ID: [id number] Report ID: [id number]
== END 2024-05-04 16:53 | disposition home or self-care (01) ==
LOC: CCL 10:20
PROVIDERS: ATTEND Internal Medicine
DX: I65.23 Occlusion and stenosis of bilateral carotid arteries (principal); I70.203 Unspecified atherosclerosis of native arteries of extremities, bilateral legs; I71.20 Thoracic aortic aneurysm, without rupture, unspecified; I10 Essential (primary) hypertension; E11.9 Type 2 diabetes mellitus without complications; E78.2 Mixed hyperlipidemia; Z79.84 Long term (current) use of oral hypoglycemic drugs; Z79.899 Other long term (current) drug therapy
CPT/HCPCS: 93005; 85025; 80048; 36415; 85610; 82947; 85730; 71046; 36222; 76937; C1893; J2001; J2250; J3010; J7040; 99152; 99153; J0461; J1644